=== PATIENT | male | born 1960 | race Caucasian/White ===

== ENCOUNTER → 2020-08-22 11:31 | Outpatient (BNVA) | payer OTHER, MEDICAID, SELFPAY | PROVIDERS: PCP Internal Medicine; Visit Provider Internal Medicine Endocrinology, Diabetes & Metabolism | DX: E11.65 Type 2 diabetes mellitus with hyperglycemia (principal); E11.21 Type 2 diabetes mellitus with diabetic nephropathy; E11.42 Type 2 diabetes mellitus with diabetic polyneuropathy; Z79.4 Long term (current) use of insulin; I10 Essential (primary) hypertension; E78.5 Hyperlipidemia, unspecified; E55.9 Vitamin D deficiency, unspecified; E06.3 Autoimmune thyroiditis | CPT/HCPCS: 82947; 99214 ==

== ENCOUNTER → 2020-09-01 12:58 | Outpatient (BNVA) | payer MEDICARE, SELFPAY | PROVIDERS: PCP Internal Medicine; Visit Provider Nurse Practitioner Gerontology | DX: E11.21 Type 2 diabetes mellitus with diabetic nephropathy (principal); E78.5 Hyperlipidemia, unspecified; I10 Essential (primary) hypertension | CPT/HCPCS: 82947; 99212 ==

== ENCOUNTER → 2020-09-15 12:29 | Outpatient (BNVA) | payer MEDICARE, SELFPAY | PROVIDERS: PCP Internal Medicine; Visit Provider Internal Medicine Endocrinology, Diabetes & Metabolism | DX: E11.65 Type 2 diabetes mellitus with hyperglycemia (principal); E11.21 Type 2 diabetes mellitus with diabetic nephropathy; E11.42 Type 2 diabetes mellitus with diabetic polyneuropathy; Z79.4 Long term (current) use of insulin; I10 Essential (primary) hypertension; E78.5 Hyperlipidemia, unspecified; E55.9 Vitamin D deficiency, unspecified; E06.3 Autoimmune thyroiditis; Z79.899 Other long term (current) drug therapy | CPT/HCPCS: 82947; 99212 ==

== ENCOUNTER → 2020-12-22 11:16 | Outpatient (BNVA) | payer MEDICARE, SELFPAY | PROVIDERS: PCP Internal Medicine; Visit Provider Internal Medicine Endocrinology, Diabetes & Metabolism | DX: E11.65 Type 2 diabetes mellitus with hyperglycemia (principal); E11.21 Type 2 diabetes mellitus with diabetic nephropathy; E11.42 Type 2 diabetes mellitus with diabetic polyneuropathy; Z79.4 Long term (current) use of insulin; I10 Essential (primary) hypertension; E78.5 Hyperlipidemia, unspecified; E55.9 Vitamin D deficiency, unspecified; E06.3 Autoimmune thyroiditis | CPT/HCPCS: 82947; 99212 ==

== ENCOUNTER → 2021-05-01 09:07 | Outpatient (BNVA) | payer MEDICARE, MEDICAID, SELFPAY | PROVIDERS: PCP Internal Medicine; Visit Provider Internal Medicine Endocrinology, Diabetes & Metabolism | DX: E11.65 Type 2 diabetes mellitus with hyperglycemia (principal); E11.21 Type 2 diabetes mellitus with diabetic nephropathy; E11.42 Type 2 diabetes mellitus with diabetic polyneuropathy; E78.5 Hyperlipidemia, unspecified; E55.9 Vitamin D deficiency, unspecified; E06.3 Autoimmune thyroiditis; I10 Essential (primary) hypertension; Z79.4 Long term (current) use of insulin | CPT/HCPCS: 82947; 99212 ==

== ENCOUNTER → 2021-08-17 11:12 | Outpatient (BNVA) | payer MEDICARE, MEDICAID, SELFPAY | PROVIDERS: PCP Internal Medicine; Visit Provider Nurse Practitioner Gerontology | DX: E11.65 Type 2 diabetes mellitus with hyperglycemia (principal); E11.21 Type 2 diabetes mellitus with diabetic nephropathy; E11.42 Type 2 diabetes mellitus with diabetic polyneuropathy; I25.10 Atherosclerotic heart disease of native coronary artery without angina pectoris; I10 Essential (primary) hypertension; E55.9 Vitamin D deficiency, unspecified; E78.5 Hyperlipidemia, unspecified; F41.8 Other specified anxiety disorders; F17.210 Nicotine dependence, cigarettes, uncomplicated; Z98.890 Other specified postprocedural states; Z79.4 Long term (current) use of insulin | CPT/HCPCS: 82947; 83036; 99212 ==

== ENCOUNTER → 2021-09-13 11:34 | Outpatient (BNVA) | payer MEDICARE, MEDICAID, SELFPAY | PROVIDERS: Visit Provider Nurse Practitioner Gerontology | DX: E11.65 Type 2 diabetes mellitus with hyperglycemia (principal); E11.42 Type 2 diabetes mellitus with diabetic polyneuropathy; E11.21 Type 2 diabetes mellitus with diabetic nephropathy; I10 Essential (primary) hypertension; E78.5 Hyperlipidemia, unspecified; E55.9 Vitamin D deficiency, unspecified; F41.8 Other specified anxiety disorders; F17.210 Nicotine dependence, cigarettes, uncomplicated; Z98.890 Other specified postprocedural states; Z83.3 Family history of diabetes mellitus; Z82.49 Family history of ischemic heart disease and other diseases of the circulatory system; Z79.4 Long term (current) use of insulin | CPT/HCPCS: 82947; Q3014 ==

== ENCOUNTER → 2021-11-12 14:39 | Outpatient (BNVA) | payer MEDICARE, MEDICAID, SELFPAY | PROVIDERS: Visit Provider Nurse Practitioner Gerontology | DX: E11.65 Type 2 diabetes mellitus with hyperglycemia (principal); E11.42 Type 2 diabetes mellitus with diabetic polyneuropathy; E11.21 Type 2 diabetes mellitus with diabetic nephropathy; E78.5 Hyperlipidemia, unspecified; E55.9 Vitamin D deficiency, unspecified; I10 Essential (primary) hypertension; Z79.4 Long term (current) use of insulin | CPT/HCPCS: 82947; 99212 ==

== ENCOUNTER → 2022-08-21 10:36 | Outpatient (BNVA) | payer MEDICARE, MEDICAID, SELFPAY | PROVIDERS: Visit Provider Internal Medicine Endocrinology, Diabetes & Metabolism | DX: E11.65 Type 2 diabetes mellitus with hyperglycemia (principal); Z79.4 Long term (current) use of insulin | CPT/HCPCS: 82947; 83036; 99212 ==

== ENCOUNTER → 2022-09-10 10:52 | Outpatient (BNVA) | payer MEDICARE, MEDICAID, SELFPAY | PROVIDERS: Visit Provider Registered Nurse Diabetes Educator | DX: E11.21 Type 2 diabetes mellitus with diabetic nephropathy (principal) | CPT/HCPCS: 99211 ==

== ENCOUNTER → 2022-12-05 10:36 | Outpatient (BNVA) | payer MEDICARE, MEDICAID, SELFPAY | PROVIDERS: Visit Provider Dietitian, Registered | DX: E11.21 Type 2 diabetes mellitus with diabetic nephropathy (principal) | CPT/HCPCS: 97802 ==

== ENCOUNTER → 2023-01-01 10:39 | Outpatient (BNVA) | payer MEDICARE, MEDICAID, SELFPAY | PROVIDERS: Visit Provider Internal Medicine Endocrinology, Diabetes & Metabolism | DX: E11.65 Type 2 diabetes mellitus with hyperglycemia (principal) | CPT/HCPCS: 82947; 83036; 99212 ==

== ENCOUNTER → 2023-04-02 10:31 | Outpatient (BNVA) | payer MEDICARE, MEDICAID, SELFPAY | PROVIDERS: Visit Provider Registered Nurse Diabetes Educator | DX: E11.65 Type 2 diabetes mellitus with hyperglycemia (principal) | CPT/HCPCS: 99211 ==

== ENCOUNTER 2025-05-30 21:39 | Emergency (ER) | payer MEDICARE, SELFPAY ==
--- NOTE | ~2025-05-30 | XR_ITS ---
EXAMINATION: XR CHEST CLINICAL INFORMATION: cough COMPARISON: 06/25/2017. TECHNIQUE: Frontal view of the chest was obtained. FINDINGS: 3-lead pacer/AICD device has been placed in the left hemithorax, with leads extending into the right atrium, right ventricle, and coronary sinus. The cardiac, hilar, and mediastinal contours are normal. The lungs are clear bilaterally. No pneumothorax or effusion. No focal osseous or soft tissue abnormality. XR/XR chest 1V IMPRESSION: 1. No active pulmonary disease. 2. AICD in place. Electronically signed by: Tk Encinas MD 05/31/2025 08:25 AM EDT
--- NOTE | ~2025-05-30 | CT_ITS ---
EXAMINATION: CT ABDOMEN AND PELVIS WITH CONTRAST CLINICAL INFORMATION: Abdominal pain, diarrhea DLP: 306 mGY*cm COMPARISON: None available. TECHNIQUE: Multidetector volumetric images were obtained from the superior aspect of the liver through the pubic symphysis following administration 85 mL of Omnipaque 350 intravenous contrast. Sagittal and coronal reformatted images were obtained on the technologist's workstation. Oral contrast: No This CT examination was performed using dose optimization techniques as appropriate, variously including the following: *Automated exposure control *Adjustment of mA and/or kV according to patient size (this includes techniques or standardized protocols for targeted exams where dose is matched to indication/reason for exam; i.e. extremities or head) *Use of iterative reconstruction technique FINDINGS: LUNG BASES: There are 2 calcified granulomas in the medial base of the left lower lobe. LIVER, GALLBLADDER, AND BILIARY TREE: Mild diffuse fatty changes are present in the liver. The gallbladder is unremarkable with no evidence of radiopaque gallstones, gallbladder wall thickening, or obvious pericholecystic inflammatory changes. PANCREAS: Unremarkable. SPLEEN: Multifocal calcified granulomas are present in the spleen. ADRENAL GLANDS: Unremarkable. KIDNEYS AND URETERS: There are vascular calcifications. Additionally, there is renal cortical scarring in the lower pole of the both kidneys and the superior pole the left kidney. BLADDER: The bladder is not fully distended. There is borderline mild thickening of the bladder wall. GASTROINTESTINAL TRACT: The small and large bowel are unremarkable. The appendix is unremarkable. ABDOMINAL WALL: No significant hernia is appreciated. LYMPH NODES: Normal. VASCULAR: Moderate arterial vascular calcifications are present. PELVIC VISCERA: Unremarkable. OSSEOUS STRUCTURES: Chronic bilateral pars interarticularis defect is present at L5 with subtle anterolisthesis Mild osteoarthritis is noted in both hip joints with marginal osteophytes involving acetabulum and foveal regions. There are bridging osteophytes involving anterior superior SI joints. CT/CT abdomen pelvis w IV con IMPRESSION: Mild fatty changes are present in the liver. Changes from chronic granulomatous disease. There are 2 calcified granulomas in the left lower lobe and numerous calcified granulomas in the spleen. Chronic renal cortical scarring, left greater than right, likely from remote pyelonephritis. Borderline mild bladder wall thickening could indicate underlying cystitis/infection. Chronic bilateral pars defect at L5 with subtle grade 1 anterolisthesis at L5-S1. Mild degenerative changes in both hips and SI joints. Fleischner guidelines were followed. Electronically signed by: Kolton Avila MD 05/31/2025 10:28 AM EDT RP
[2025-05-30 21:53] VITALS: BP 172/76; PULSE 86; RESP 15; TEMP 36.4; O2SAT 98; BMI 24.0
--- NOTE | 2025-05-30 22:03 | ECG_ITS ---
Test Reason : DIZZINESS Blood Pressure : */* mmHG Vent. Rate : 77 BPM Atrial Rate : 77 BPM P-R Int : 140 ms QRS Dur : 146 ms QT Int : 408 ms P-R-T Axes : 57 42 74 degrees QTcB Int : 461 ms Atrial-sensed ventricular-paced rhythm Abnormal ECG When compared with ECG of 30-May-2019 11:51, Electronic ventricular pacemaker has replaced Sinus rhythm Referred By: Generic ED Physician Electronically Signed By: MP JORDAN
[2025-05-30 23:13] LABS: MANUAL DIFF FLAG NO
[2025-05-30 23:14] LABS: Hematocrit 31.8 % (42.0-52.0); Hemoglobin 10.9 g/dl (14.0-18.0); Imm Gran Abs Auto 0.02 X10*3/uL (0.00-0.03); Imm Gran Pct Auto 0.2 % (0.0-0.4); Lymphocytes Absolute Auto 2.6 X10*3/uL (1.2-4.9); Mean Corpuscular HGB Conc 34.3 g/dl (31.0-36.0); Mean Corpuscular Hemoglobin 29.7 pg (27.0-33.0); Mean Corpuscular Volume 86.6 fL (80.0-98.0); NRBC Abs Auto 0.000 X10*3/uL (0.0-0.012); NRBC Pct Auto 0.0 /100WBC (0.0-0.2); Platelet Count 253 X10*3/uL (160-400); Red Blood Count 3.67 X10*6/uL (4.60-5.80); White Blood Count 8.6 X10*3/uL (4.8-10.8)
[2025-05-30 23:17] LABS: Appearance Urine Clear; Glucose Urine UA 100 mg/dL (Negative); PH 5.5 (5.0-9.0); Specific Gravity - Urine 1.015 (1.005-1.025); UMIC TRIGGER UACC YES
[2025-05-30 23:31] LABS: Alanine Aminotransferase 17 U/L (0-40); Albumin Level 4.6 g/dL (3.5-5.0); Alkaline Phosphatase 56 U/L (39-117); Anion Gap 12 (12-20); Aspartate Amino Transferase 20 U/L (5-37); Blood Urea Nitrogen 9 mg/dL (9-16); Calcium 9.4 mg/dL (8.4-10.2); Carbon Dioxide 26 mmol/L (22-29); Chloride 100 mmol/L (96-108); Creatinine Clr Calc Pharmacy 84.9; Estimated Glomerular Filt Rate > 60; Lipase 32 U/L (8-78); Magnesium 1.6 mg/dL (1.6-2.6); Potassium 4.2 mmol/L (3.3-5.1); Sodium 134 mmol/L (135-145); Total Protein 7.7 g/dL (6.5-8.0)
[2025-05-30 23:36] LABS: Troponin-I High Sensitivity < 2.7 ng/L (<3.5-35.0)
[2025-05-30 23:50] LABS: Resp Syncy Virus RNA Qual PCR NEGATIVE (Negative); SARS COV2 PCR INHOUSE NEGATIVE (Negative)
[2025-05-31 02:27] VITALS: BP 156/69; PULSE 75; RESP 18; TEMP 36.4; O2SAT 98
[2025-05-31 03:48] VITALS: BP 156/72; PULSE 74; RESP 18; TEMP 36.5; O2SAT 99
--- NOTE | 2025-05-31 07:12 | ED.NAVMDI ---
HPI - Nausea/Vomiting/Diarrhea General Chief complaint: Nausea/Vomiting/Diarrhea Stated complaint: diabetic, pace maker, not taking care of himself Time Seen by Provider: 05/31/25 04:58 Source: patient and old records reviewed Mode of arrival: ambulatory Limitations: no limitations History of Present Illness ED Provider: SIRENA HPI Narrative: 65 yo male with PMH of DM2, HTN, HLD, states he has been ill for 4 days he has nausea when he eats and mid abdominal pain along with diarrhea. He denies travel, sick contacts, fevers, recent abx use, no blood in stool reported. He states he cannot eat but wants coffee. He has also had a dry cough for 5 days but no sputum. He has no CP/SOB. He states he feels tired and weak. MD elicited complaint: nausea, diarrhea and abdominal pain Onset (ago): day(s) (4) Description of diarrhea: watery Associated nausea: Yes Associated abdominal pain: Yes Location of pain: periumbilical Radiation: diffuse Pain consistency: intermittent Severity: moderate Exacerbating factors: eating Relieving factors: none Associated symptoms: cough, loss of appetite, malaise, nausea/vomiting and weakness Related Data Home Medications ?Medication ?Instructions ?Recorded ?Confirmed atorvastatin 80 mg tablet 80 mg PO DAILY 08/22/20 01/01/23 benztropine 1 mg tablet 1 mg PO DAILY 08/22/20 01/01/23 bupropion HCl 150 mg 24 hr tablet, 150 mg PO QAM 08/22/20 01/01/23 extended release bupropion HCl 300 mg 24 hr tablet, 300 mg PO QAM 08/22/20 01/01/23 extended release haloperidol 2 mg tablet 2 mg PO BID 08/22/20 01/01/23 metoprolol succinate 25 mg 25 mg PO DAILY 08/22/20 01/01/23 tablet,extended release 24 hr mirtazapine 45 mg tablet 45 mg PO BEDTIME 08/22/20 01/01/23 prazosin 2 mg capsule 2 mg PO BEDTIME 08/22/20 01/01/23 prazosin 5 mg capsule 5 mg PO BEDTIME 08/22/20 01/01/23 trazodone 150 mg tablet See Rx Instructions PO BEDTIME PRN 08/22/20 01/01/23 aripiprazole 30 mg tablet 30 mg PO DAILY 09/01/20 01/01/23 cholecalciferol (vitamin D3) 50 50 mcg PO DAILY 09/01/20 01/01/23 mcg (2,000 unit) capsule famotidine 10 mg tablet (Acid 20 mg PO .daily prn 09/01/20 01/01/23 Aerodynamicist (famotidine)) gemfibrozil 600 mg tablet 600 mg PO BID 09/01/20 01/01/23 lidocaine 4 % topical patch patch topical 09/01/20 01/01/23 lisinopril 5 mg tablet 5 mg PO DAILY 09/01/20 01/01/23 alcohol swabs pad topical 12/22/20 01/01/23 bisacodyl 5 mg tablet,delayed 10 mg PO BEDTIME PRN constipation 05/01/21 01/01/23 release fenofibrate nanocrystallized 48 mg 48 mg PO DAILY 08/17/21 01/01/23 tablet sennosides 8.6 mg tablet 8.6 mg PO 08/17/21 01/01/23 acetaminophen 325 mg tablet 325 mg PO 09/13/21 01/01/23 aspirin 81 mg chewable tablet 1 tab PO DAILY 09/13/21 01/01/23 cyanocobalamin (vitamin B-12) 1,000 mcg PO DAILY 08/21/22 01/01/23 1,000 mcg tablet (Vitamin B-12) gabapentin 800 mg tablet 800 mg PO DAILY PRN 08/21/22 01/01/23 omega 4-fii-qbw-fish oil 1,000 mg 2 cap PO BID 08/21/22 01/01/23 (120 mg-180 mg) capsule semaglutide 0.25 mg or 0.5 mg (2 mg subcut 08/21/22 01/01/23 mg/1.5 mL) subcutaneous pen injector (Ozempic) folic acid 1 mg tablet 1 mg PO DAILY 01/01/23 01/01/23 multivitamin with folic acid 400 1 tab PO DAILY 01/01/23 01/01/23 mcg tablet (Daily-Stefany (with folic acid)) Previous Rx's ?Medication ?Instructions ?Recorded pen needle, diabetic 31 gauge x #100 ea 05/01/2110/30 omega-3 fatty acids 1,000 mg 2,000 mg (2 x 1,000 mg) PO BID 30 01/08/22 capsule days #120 caps insulin lispro protamine-lispro See Rx Instructions subcut DAILY 04/16/22 100 unit/mL (50-50) subcutaneous 30 days #30 mL pen (Humalog Mix 50-50 KwikPen) flash glucose scanning reader #1 ea 01/01/23 (FreeStyle Patricia 2 [place]) flash glucose sensor (FreeStyle #2 ea 01/01/23 Patricia 2 Sensor kit) omeprazole 20 mg capsule,delayed 20 mg PO DAILY #14 caps 05/31/25 release ondansetron 4 mg disintegrating 4 mg PO Q8H PRN nausea and 05/31/25 tablet vomiting #20 tabs Allergies Allergy/AdvReac Type Severity Reaction Status Date / Time No Known Allergies (No Known Allergy Verified 05/30/25 22:02 Allergies*) Review of Systems Review of Systems: Constitutional : No Weight loss, No Fever, No Chills ENT/Mouth : No sore throat, No Rhinorrhea Eyes: No Swelling, No Redness Cardiovascular : No Chest Pain, No SOB, NoEdema Respiratory : No Cough, No Sputum, No Wheezing Gastrointestinal : Positive Nausea, no Vomiting, positive Diarrhea, positive abdominal Pain, No Hematochezia, No Melena Genitourinary : No Dysuria, No Urinary Frequency, No Hematuria, No Urgency Musculoskeletal : No joint pain, No Myalgias, No Joint Swelling Skin : No Skin Lesions, No rash Neuro : No Weakness, No Numbness, No Dizziness, No Headache All other systems reviewed and are negative. Gastrointestinal: Gastrointestinal: Reports nausea PMFSH Past Medical History Attestation statement: The following information was validated with the patient. 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 Vitamin D deficiency Dyslipidemia Hypertension Diabetic polyneuropathy associated with type 2 diabetes mellitus Diabetic nephropathy intermediate (current) use of insulin Diabetes type 2, uncontrolled Surgical History History of pacemaker Hx of cardiac cath Family History Family History Father CVD (cardiovascular disease) Diabetes Mother Diabetes Social History Social History Household Members: None Alcohol intake: current Alcohol intake frequency: other Alcohol type: beer Patient Tobacco Use Status: Current someday Tobacco user Tobacco use type: Cigarette Cigarettes Per Day: 4 Smoked in Last 30 Days: Yes Use of substances other than those prescribed or required for medical reasons: Yes Substance Use Type: Crack/Cocaine Advance Directives: No Do you have a plan to hurt others: No Plan Physical Exam Vital Signs: Vital Signs: Last Vital Signs Temp 99.0 F 05/31/25 08:18 Pulse 65 05/31/25 10:14 Resp 18 05/31/25 10:14 BP 142/44 H 05/31/25 10:14 Pulse Ox 100 05/31/25 10:14 O2 Del Method Room Air 05/31/25 10:14 BMI result Body Mass Index 24.0 Appearance: Alert. Oriented X3. No acute distress. Eyes: Pupils equal, round and reactive to light. ENT: Pharynx normal. Neck: Normal inspection. Neck supple. CVS: Normal heart rate and rhythm. Pulses normal. Respiratory: No respiratory distress. Breath sounds normal. Abdomen: Soft and mild periumbilical ttp neg tamez's sign Skin: Skin warm and dry. Normal skin color. Normal skin turgor. Extremities: No lower extremity edema. No calf ttp Neuro: Oriented X 3. No motor deficit. No sensory deficit. CN2-12 intact Medications Administered Discontinued Medications Generic Name Dose Route Start Last Admin Trade Name Freq PRN Reason Stop Dose Admin Lactated Ringer's 1,000 mls @ 999 mls/hr 05/31/25 07:35 05/31/25 09:30 Lr IV 05/31/25 08:35 999 mls/hr .Q1H1M ONE Administration Iohexol 100 ml 05/31/25 10:14 05/31/25 10:15 Iohexol 350 Mg/Ml 100 Ml Infus..Btl IV 05/31/25 10:15 85 ml ONCE ONE Administration Ondansetron HCl 4 mg 05/31/25 07:35 05/31/25 09:30 Ondansetron Hcl 4 Mg/2 Ml Vial IVPUSH 05/31/25 07:36 4 mg ONCE ONE Administration Medical Decision Making Medical Decision Making MDM Narrative: 65 yo male with PMH of DM2, HTN, HLD, states he has cough and abd pain with nausea and non bloody stools x 4 days witih poor PO intake. He denies any GIB symptoms, symptoms. He has no CP/SOB at this time he is asking for coffee - I am going to obtain labs, EKG, start on fluids and zofran - CT scan for diverticular disease, colitis, gastritis, CXR for URI Differential Diagnosis Differential Diagnoses: The differential diagnosis associated with the presentation includes diverticular ds, gastritis, PUD, lyte abnormality, dehydration, colitis Admission/Observation Consideration of admission/observation: Escalation of care including admission/observation considered labs and CT scan no acute pathology to suggest his symptoms, no diarrhea here. tolerating PO will start on PPI and zofran refer to PCP Lab Data MDM Lab Attestation statement: I reviewed the patient's lab results. hx of anemia, no GIB symptoms BUN is normal 05/30/25 23:01 05/30/25 23:01 Labs: Lab Results 05/30/25 Range/Units 23:01 WBC 8.6 (4.8-10.8) X10*3/uL RBC 3.67 L (4.60-5.80) X10*6/uL Hgb 10.9 L (14.0-18.0) g/dl Hct 31.8 L (42.0-52.0) % MCV 86.6 (80.0-98.0) fL MCH 29.7 (27.0-33.0) pg MCHC 34.3 (31.0-36.0) g/dl RDW 13.2 (11.0-16.0) % Plt Count 253 (160-400) X10*3/uL MPV 9.8 (9.4-12.4) fL Immature Gran % (Auto) 0.2 (0.0-0.4) % Neut % (Auto) 57.4 (45-73) % Lymph % (Auto) 29.8 (20-40) % [facility] % (Auto) 7.4 (2-11) % Eos % (Auto) 4.7 H (0-4) % Baso % (Auto) 0.5 (0-2) % Lymph # (Auto) 2.6 (1.2-4.9) X10*3/uL [facility] [place] [facility] # (Auto) 0.6 (0.1-1.2) X10*3/uL Eos # (Auto) 0.4 (0.0-0.4) X10*3/uL Baso # (Auto) 0.0 (0.0-0.2) X10*3/uL Abs Immat Gran (auto) 0.02 (0.00-0.03) X10*3/uL Absolute Neuts (auto) 4.9 (2.0-8.3) x10*3/uL Absolute Nucleated RBC 0.000 (0.0-0.012) X10*3/uL Nucleated RBC % (auto) 0.0 (0.0-0.2) /100WBC Sodium 134 L (135-145) mmol/L Potassium 4.2 (3.3-5.1) mmol/L Chloride 100 (96-108) mmol/L Carbon Dioxide 26 (22-29) mmol/L Anion Gap 12 (12-20) BUN 9 (9-16) mg/dL Creatinine 0.89 (0.5-1.4) mg/dL Estim Creat Clear Calc 84.9 Estimated GFR > 60 Random Glucose 146 H (60-115) mg/dL Calcium 9.4 (8.4-10.2) mg/dL Magnesium 1.6 (1.6-2.6) mg/dL Total Bilirubin 0.3 (0.0-1.0) mg/dL AST 20 (5-37) U/L ALT 17 (0-40) U/L Alkaline Phosphatase 56 (39-117) U/L Troponin I High Sens < 2.7 (<3.5-35.0) ng/L Total Protein 7.7 (6.5-8.0) g/dL Albumin 4.6 (3.5-5.0) g/dL Lipase 32 (8-78) U/L Urine Color Yellow Urine Appearance Clear Urine pH 5.5 (5.0-9.0) Ur Specific [place] 1.015 (1.005-1.025) Urine Protein 100 (2+) H (Neg-Trace) mg/dL Urine Glucose (UA) 100 H (Negative) mg/dL Urine Ketones Negative (Negative) mg/dL Urine Blood Negative (Negative) Urine Nitrite Negative (Negative) Ur Leukocyte Esterase Negative (Negative) Urine RBC 0-2 (0-2) /HPF Urine WBC 0-5 (0-5) /HPF Ur Squamous Epith Cells 0-2 (0-2) /HPF Urine Bacteria None Seen (None Seen) Hyaline Casts 3-5 (0-2) /LPF Influenza Type A (PCR) NEGATIVE (Negative) Influenza Type B (PCR) NEGATIVE (Negative) RSV RNA Qual (PCR) NEGATIVE (Negative) SARS-CoV-2 RNA (RT-PCR) NEGATIVE (Negative) Independent Interpretation I performed an independent interpretation of an: EKG, Plain X-Ray (normal ) and CT Scan (normal ) Interpretation: Rate: 77 Rhythm: av sensed pacer [place]: left wide QRS complex. ST T wave : no DELILAH, paced rhythm qTC: 461 prior studies: paced The study has been interpreted contemporaneously by me. . Radiology Impression Discussion of test interpretation with radiology: I have reviewed the radiologist's reading. External Record Review External record reviewed: Outpatient record Prescription Management I considered prescription management with: Other Discharge Plan Discharge Clinical Impression: Acute viral syndrome Abdominal pain Qualifiers: Abdominal location: periumbilical Qualified Code(s): R10.33 - Periumbilical pain Patient Disposition: Home, Self-Care Instructions: Viral Syndrome (ED), Abdominal Pain (ED) Additional Instructions: return for worsening pain, black or bloody stools, fevers over 100.4, CT scan reassuring and chest xray no pneumonia no covid, flu, rsv please eat a bland diet call and follow up with your primary care doctor this week Prescriptions: New omeprazole 20 mg capsule,delayed release(DR/EC) 20 mg PO DAILY Qty: 14 0RF ondansetron 4 mg tablet,disintegrating 4 mg PO Q8H PRN (Reason: nausea and vomiting) Qty: 20 0RF No Action omega-3 fatty acids 1,000 mg capsule 2,000 mg PO BID 30 Days Qty: 120 6RF Humalog Mix 50-50 KwikPen 100 unit/mL (50-50) insulin pen See Rx Instructions subcut DAILY 30 Days Qty: 30 6RF Rx Instructions: 50 units in the morning and 45 units with dinner subcut daily; atorvastatin 80 mg tablet 80 mg PO DAILY benztropine 1 mg tablet 1 mg PO DAILY bupropion HCl 150 mg tablet extended release 24 hr 150 mg PO QAM bupropion HCl 300 mg tablet extended release 24 hr 300 mg PO QAM haloperidol 2 mg tablet 2 mg PO BID metoprolol succinate 25 mg tablet extended release 24 hr 25 mg PO DAILY mirtazapine 45 mg tablet 45 mg PO BEDTIME prazosin 2 mg capsule 2 mg PO BEDTIME prazosin 5 mg capsule 5 mg PO BEDTIME trazodone 150 mg tablet See Rx Instructions PO BEDTIME PRN Rx Instructions: 1-2 tabs prn sleeplessness PO bedtime PRN; aripiprazole 30 mg tablet 30 mg PO DAILY famotidine [Acid Aerodynamicist (famotidine)] 10 mg tablet 20 mg PO .daily prn lisinopril 5 mg tablet 5 mg PO DAILY gemfibrozil 600 mg tablet 600 mg PO BID lidocaine 4 % adhesive patch,medicated topical cholecalciferol (vitamin D3) 50 mcg (2,000 unit) capsule 50 mcg PO DAILY sennosides 8.6 mg tablet 8.6 mg PO alcohol swabs Pads, Medicated topical bisacodyl 5 mg tablet,delayed release (DR/EC) 10 mg PO BEDTIME PRN (Reason: constipation) (DME) pen needle, diabetic 31 gauge x 1/4 needle See Rx Instructions .ROUTE .MEDSUPPLY Qty: 100 5RF Rx Instructions: twice a day acetaminophen 325 mg tablet 325 mg PO fenofibrate nanocrystallized 48 mg tablet 48 mg PO DAILY aspirin 81 mg tablet,chewable 1 tab PO DAILY cyanocobalamin (vitamin B-12) [Vitamin B-12] 1,000 mcg tablet 1,000 mcg PO DAILY gabapentin 800 mg tablet 800 mg PO DAILY PRN Ozempic 0.25 mg or 0.5 mg(2 mg/1.5 mL) pen injector subcut omega 8-bhg-zbm-fish oil 1,000 mg (120 mg-180 mg) capsule 2 cap PO BID multivitamin with folic acid [Daily-Stefany (with folic acid)] 400 mcg tablet 1 tab PO DAILY folic acid 1 mg tablet 1 mg PO DAILY (DME) FreeStyle Patricia 2 Sensor Kit See Rx Instructions .Route Qty: 2 5RF Rx Instructions: As directed (DME) FreeStyle Patricia 2 [place] Misc See Rx Instructions .Route Qty: 1 0RF Rx Instructions: As directed Print Language: [place]
[2025-05-31 08:18] VITALS: BP 147/66; PULSE 71; RESP 16; TEMP 37.2; O2SAT 97
[2025-05-31] MEDS: Lactated Ringers 1,000 ML 999 ML IV (09:30)
[2025-05-31 10:14] VITALS: BP 142/44; PULSE 65; RESP 18; O2SAT 100
[2025-05-31] MEDS: iohexoL 350 MG/ML 100 ML INFUS..BTL IV (10:15)
[2025-05-31 11:51] VITALS: BP 142/44; PULSE 65; RESP 18; TEMP 36.3; O2SAT 100
--- NOTE | 2025-06-09 08:01 | PC.NURSE ---
late entry: LR 1,000ml completed infusion p/t D/C from department.
== END 2025-05-31 11:52 | disposition home or self-care (01) ==
PROVIDERS: Emergency Medicine; Emergency Provider Emergency Medicine
DX: R10.33 Periumbilical pain (principal); R11.0 Nausea; R19.7 Diarrhea, unspecified; E11.9 Type 2 diabetes mellitus without complications; I10 Essential (primary) hypertension; E78.5 Hyperlipidemia, unspecified; R10.9 Unspecified abdominal pain; Z03.818 Encounter for observation for suspected exposure to other biological agents ruled out
CPT/HCPCS: 36415; 71045; 74177; 80053; 81001; 83690; 83735; 84484; 85025; 87637; 93005; 99284; 99285; J2405; J7120; Q9967

== ENCOUNTER → 2025-05-30 22:03 | Outpatient (BNV) | payer MEDICARE, MEDICAID, SELFPAY | PROVIDERS: Emergency Provider Emergency Medicine; Visit Provider Internal Medicine | DX: R94.31 Abnormal electrocardiogram [ECG] [EKG] (principal); Z95.0 Presence of cardiac pacemaker | CPT/HCPCS: 93010 ==

== ENCOUNTER → 2025-05-31 08:05 | Outpatient (BNV) | payer MEDICARE, MEDICAID, SELFPAY | PROVIDERS: Emergency Provider Emergency Medicine; Visit Provider Radiology Diagnostic Radiology | DX: M43.17 Spondylolisthesis, lumbosacral region (principal); R05.9 Cough, unspecified | CPT/HCPCS: 71045 ==